=== PATIENT | male | born 1955 | race American Indian/Alaskan Native ===

== ENCOUNTER 2022-11-15 13:52 | Inpatient (IN) | payer OTHER ==
[~2022-11-15] VITALS: Ht 177.8 cm; Wt 115.0 kg
[2022-11-15] VITALS (14 sets, daily range): BP systolic 75–142; BP diastolic 36–99
[~2022-11-15 13:52] MED LIST: ATOR40TA PO; Albuterol Sulfat2 MG PO; CIPR500 PO; DOCU100 PO; HYDR1TAB94 PO; MECL12.5 PO; MELO7.5; PARO20 PO; TADA10TA PO; TAMS.4ER; TERA5
[2022-11-15 14:21] LABS: Hemoglobin 11.9 g/dL (13.5-17.5); Mean Corpuscular HGB 30.7 pg (26.0-34.0); Mean Corpuscular Volume 90 fL (80-100); Mean Platelet Volume 12.2 fL (9.1-12.4); Platelet Count 78 K/mm3 (150-400); RDW Coefficient Variation 13.4 % (11.7-14.2); RDW Standard Deviation 44.3 fL (35.1-46.3); Red Blood Cell Count 3.88 M/mm3 (4.30-5.90); White Blood Cell Count 16.06 K/mm3 (4.00-11.30)
[2022-11-15 14:30] LABS: Albumin, Blood 2.4 g/dL (3.4-5.0); Albumin/Globulin Ratio 0.6 (0.8-1.8); Bun/Creatinine Ratio 12.2 (12.0-20.0); Calcium, Blood 7.5 mg/dL (8.5-10.1); Creatinine, Blood 4.66 mg/dL (0.60-1.20); Globulin, Blood 3.8 g/dL (2.2-4.0); Potassium, Blood 4.1 mmol/L (3.5-5.5); Total Protein, Blood 6.2 g/dL (6.4-8.2)
[2022-11-15 14:37] LABS: Base Excess Venous -2.5 mmol/L; PCO2 Venous 45.1 mmHg (38-42); pH Blood Venous 7.33 (7.34-7.37)
[2022-11-15 14:50] LABS: BAND PERCENT MAN 55 % (0-8); BASOPHILS PERCENT MAN 0 % (0-2); EOSINOPHILS PERCENT MAN 0 % (0-6); LYMPHOCYTES ABSOLUTE MAN 0.16 K/mm3 (0.84-5.20); LYMPHOCYTES PERCENT MAN 1 % (21-46); METAMYELOCYTE ABSOLUTE MAN 0.32 K/mm3 (0.00-0.00); METAMYELOCYTE PERCENT MAN 2 % (0-0); MONOCYTES ABSOLUTE MAN 0.16 K/mm3 (0.16-1.47); MONOCYTES PERCENT MAN 1 % (4-13); MYELOCYTE ABSOLUTE MAN 0.16 K/mm3 (0.00-0.00); MYELOCYTE PERCENT MAN 1 % (0-0); NEUTROPHILS ABSOLUTE MAN 15.25 K/mm3 (1.96-9.15); SEG NEUTROPHILS PERCENT MAN 40 % (41-73); TOTAL CELLS COUNTED 100
[2022-11-15 16:13] LABS: Influenza A, PCR NEGATIVE (NEGATIVE); Influenza B, PCR NEGATIVE (NEGATIVE); Resp Syncytial Virus, PCR NEGATIVE (NEGATIVE); SARS-Cov-2 (COVID-19) PCR, MMC NEGATIVE (NEGATIVE)
[2022-11-15 16:22] LABS: U Amphetamine Screen Not Detected; U Barbituate Screen Not Detected; U Benzodiazapine Screen DETECTED; U Buprenorphine Screen Not Detected; U Cannabinoids Screen Not Detected; U Cocaine Screen Not Detected; U Methadone Screen Not Detected; U Methamphetamine Screen Not Detected; U Opiates Screen Not Detected; U Oxycodone Screen Not Detected; U Phencyclidine Screen Not Detected; U Propoxyphene Screen Not Detected
[2022-11-15 17:52] LABS: Source, Urine Foley catheter
[2022-11-15 18:17] LABS: Appearance, Urine Turbid (Clear); Blood, Urine 5+ (Neg); Color, Urine Amber (P-Yellow); Glucose Qualitative, Urine Neg (Neg); Ketones, Urine 1+ (Neg); Leukocyte Esterase, Urine 3+ (Neg); Nitrite, Urine Neg (Neg); Protein, Urine 4+ (Neg); Urobilinogen, Urine 3+ (Normal)
[2022-11-15 18:42] LABS: Bilirubin, Urine 2+ (Neg)
[2022-11-15 18:45] LABS: Bacteria Many /hpf; Renal Epithelial Few /hpf (0-Rare); Squamous Epithelial Cells Many /hpf (Few); Transitional Epithelial Cells Rare /hpf (0-Rare); White Blood Cells, Urine 50-100 /hpf (0-5)
[2022-11-15 18:47] LABS: Amorphous Light (0-Heavy); Hyaline Casts 0-2 /lpf (0-2)
[2022-11-15 19:12] LABS: International Normalized Ratio 1.78; Prothrombin Time Results 18.1 Sec (9.7-11.5)
[2022-11-15 19:21] LABS: Albumin, Blood 2.1 g/dL (3.4-5.0); Anion Gap 11 mmol/L (6-16); Blood Urea Nitrogen 58 mg/dL (8-24); Bun/Creatinine Ratio 12.6 (12.0-20.0); CO2, Blood 18 mmol/L (21-32); Calcium, Blood 6.9 mg/dL (8.5-10.1); Chloride, Blood 106 mmol/L (98-108); Creatinine, Blood 4.61 mg/dL (0.60-1.20); Glomerular Filtration Rate 13 (60-); Glucose, Blood 135 mg/dL (70-99); Phosphorus, Blood 4.1 mg/dL (2.5-4.9); Potassium, Blood 4.3 mmol/L (3.5-5.5); Sodium, Blood 135 mmol/L (136-145)
--- NOTE | 2022-11-15 19:40 | NUR ---
ASSUMPTION OF CARE: RECEIVED PT FROM JUAN C SIMS FROM ER. PT ARRIVED VIA GURNEY. SLID PT ACROSS TO OUR BED WITH ASSISTANCE. PT ALERT AND ORIENTED TO TIME, PERSON, PLACE AND SITUATION. ON RA WITH SATS >95%. WHEEZING IN UPPER LOBES NOTED AND DIMINISHED IN THE BASES. PT ON LEVOPHED AT 16 MCG/MIN. VASOPRESSIN AT 0.04 UNITS/MIN. NEOSYNEPRHINE AT 60 MCG/MIN. MEDICATIONS INFUSING THROUGH RIGHT IJ CENTRAL LINE. TITRATED TO MAINTAIN MAP >65. PT HAS C/O CHEST PRESSURE, IS DISPHORETIC AND CLAMMY. EKG OBTAINED AND DR. BURGER NOTIFIED WITH RESULTS. GRIFFIN IN PLACE WHICH IS PATENT AND DRAINING TO GRAVITY. VERY SMALL AMOUNTS OF DARK BARBARA COLORED URINE NOTED. ABLE TO USE THE BEDPAN WITH ASSISTANCE. PT'S SIGNIFICANT OTHER AT THE BEDSIDE AND UPDATED TO PLAN OF CARE.
[2022-11-15] MEDS ORDERED: TAMS.4ER PO (20:10)
[2022-11-15] MEDS ORDERED: TEMA30 PO (20:12)
[2022-11-15] MEDS ORDERED: OXYB5 PO (20:12)
[2022-11-15] MEDS ORDERED: DICL75ER PO (20:13)
[2022-11-15] MEDS ORDERED: CELEXA40 M1 PO (20:14)
[2022-11-15 20:30] LABS: PCO2 Arterial 33.1 mmHg (35-45); PO2 Arterial 80.2 mmHg (80-100); pH Blood Arterial 7.32 (7.35-7.45)
[2022-11-15 21:10] LABS: Albumin, Blood 2.1 g/dL (3.4-5.0); Albumin/Globulin Ratio 0.6 (0.8-1.8); Bilirubin, Total 3.6 mg/dL (0.1-1.0); Bun/Creatinine Ratio 13.1 (12.0-20.0); Calcium, Blood 6.9 mg/dL (8.5-10.1); Creatinine, Blood 4.65 mg/dL (0.60-1.20); Globulin, Blood 3.8 g/dL (2.2-4.0); Magnesium, Blood 1.9 mg/dL (1.6-2.4); Total Protein, Blood 5.9 g/dL (6.4-8.2)
--- NOTE | 2022-11-15 23:12 | NUR ---
UPDATE: CALL PLACED TO DR. CHIU REGARDING INCREASING TROPONIN. UPDATED ON PATIENT CONDITION WELL. DR. CHIU AT THE BEDSIDE REGARDING POSSIBLE INTUBATION ON THIS PATIENT. DECISION TO NOT INTUBATE AT THIS TIME. PER DR. CHIU NEOSYNEPHRINE PLACED ON STANDBY AND DECISION TO NOT GIVE THE NS AND SODIUM BICARB AT THIS TIME.
[2022-11-16] VITALS (76 sets, daily range): BP systolic 87–148; BP diastolic 53–89
[2022-11-16 04:13] LABS: Hematocrit 35.8 % (37.0-53.0); Mean Corpuscular HGB 30.7 pg (26.0-34.0); Mean Corpuscular HGB Conc 33.5 g/dL (31.5-36.5); Mean Corpuscular Volume 92 fL (80-100); Mean Platelet Volume 12.9 fL (9.1-12.4); RDW Coefficient Variation 13.9 % (11.7-14.2); RDW Standard Deviation 47.1 fL (35.1-46.3); Red Blood Cell Count 3.91 M/mm3 (4.30-5.90); White Blood Cell Count 20.13 K/mm3 (4.00-11.30)
[2022-11-16 04:16] LABS: Platelet Count 50 K/mm3 (150-400)
[2022-11-16 04:26] LABS: International Normalized Ratio 1.74; Prothrombin Time Results 17.7 Sec (9.7-11.5)
[2022-11-16 04:32] LABS: Magnesium, Blood 2.2 mg/dL (1.6-2.4)
[2022-11-16 04:33] LABS: Albumin, Blood 2.2 g/dL (3.4-5.0); Albumin/Globulin Ratio 0.6 (0.8-1.8); Bilirubin, Total 3.8 mg/dL (0.1-1.0); Bun/Creatinine Ratio 14.2 (12.0-20.0); Calcium, Blood 7.1 mg/dL (8.5-10.1); Creatinine, Blood 4.73 mg/dL (0.60-1.20); Phosphorus, Blood 4.9 mg/dL (2.5-4.9); Potassium, Blood 4.7 mmol/L (3.5-5.5); Total Protein, Blood 6.2 g/dL (6.4-8.2)
[2022-11-16 05:37] LABS: BAND PERCENT MAN 13 % (0-8); BASOPHILS PERCENT MAN 0 % (0-2); EOSINOPHILS PERCENT MAN 0 % (0-6); LYMPHOCYTES PERCENT MAN 2 % (21-46); METAMYELOCYTE PERCENT MAN 3 % (0-0); MONOCYTES PERCENT MAN 2 % (4-13); NEUTROPHILS ABSOLUTE MAN 18.72 K/mm3 (1.96-9.15); SEG NEUTROPHILS PERCENT MAN 80 % (41-73); TOTAL CELLS COUNTED 100
--- NOTE | 2022-11-16 06:08 | NUR ---
SHIFT SUMMARY: PT REMAINS ALERT AND ORIENTED TO TIME, PERSON, PLACE AND SITUATION. LUNG SOUNDS STILL WHEEZY IN UPPER LOBES AND DIM IN THE BASES. REMAINS ON RA WITH SATS >95%. DENIES SOB. PT STILL A LITTLE DIAPHORETIC AND CLAMMY. LEVO, CHAPINCITO AND VASO REMAIN ON SB AT THIS TIME SINCE 231. AMIO INFUSING AT 0.5 MG/HR. MAP >65. HR 70'S IN SINUS RHYTHM. DENIES CHEST PAIN/PRESSURE AT THIS TIME. CENTRAL LINE TO RIGHT IJ INFUSING AMIO, PATENT DRAWS BLOOD AND FLUSHES WELL, NEW DRESSING THIS SHIFT. PIV'S ALL REMAIN INTACT. RIGHT HAND 20 GAUGE INFUSING CALCIUM. RIGHT AC SALINE LOCKED, LEFT AC SALINE LOCKED. GRIFFIN IN PLACE, PATENT AND DRAINING DARK, BARBARA URINE TO GRAVITY. SMALL BM THIS SHIFT. PT C/O FEELING NAUSEOUS, HAVING HEARTBURN. MEDICATED PER APR WITH SOME MILD RELIEF. PLANS TO TAKE PT TO OR TODAY FOR POSSIBLE NEPHROSTOMY TUBE PLACEMENT. PT NPO SINCE MIDNIGHT. IR CONSULT CALLED PER LUIZ. ABLE TO REPOSITION IN THE BED WITH ASSISTANCE. CALL LIGHT IN REACH.
--- NOTE | 2022-11-16 07:00 | NUR ---
ASSUMPTION OF CARE: ASSUMED CARE OF PATIENT WITH ARI PELLETIER. PATIENT RESTING IN BED. PATIENT REPORTS FEELING GENERALLY UNWELL. PATIENT DENIES PAIN. PATIENT REPORTS HEARTBURN. PATIENT EXPERIENCING THIN, DARK BROWN EMESIS. DR. CARLSON AND DR. CHIU AWARE. PATIENT ANSWERING QUESTIONS APPROPRIATELY. MINIMAL OUTPUT IN THE GRIFFIN CATHETER. CATHETER IS DRAINING FREELY. PATIENT SPO2 95-97% ON ROOM AIR. RR 16-20. PATIENT DENIES SHORTNESS OF BREATH OR DIFFICULTY BREATHING. LEVO, VASOPRESSIN, AND CHAPINCITO CONTINUE TO BE ON STANDBY. PATIENT RECEIVING AMIO AT 0.5MG/MIN. PATIENT IS NORMAL SINUS RHYTHM. MAPS >65.
[2022-11-16 08:46] LABS: Hematocrit 36.1 % (37.0-53.0); Hemoglobin 12.3 g/dL (13.5-17.5); Mean Corpuscular HGB 30.7 pg (26.0-34.0); Mean Corpuscular HGB Conc 34.1 g/dL (31.5-36.5); Mean Corpuscular Volume 90 fL (80-100); RDW Coefficient Variation 13.7 % (11.7-14.2); RDW Standard Deviation 45.9 fL (35.1-46.3); Red Blood Cell Count 4.01 M/mm3 (4.30-5.90); White Blood Cell Count 23.61 K/mm3 (4.00-11.30)
[2022-11-16 08:49] LABS: Platelet Count 46 K/mm3 (150-400)
[2022-11-16 09:09] LABS: International Normalized Ratio 1.68; Prothrombin Time Results 17.1 Sec (9.7-11.5)
[2022-11-16 09:12] LABS: BAND PERCENT MAN 10 % (0-8); BASOPHILS PERCENT MAN 0 % (0-2); EOSINOPHILS PERCENT MAN 0 % (0-6); LYMPHOCYTES PERCENT MAN 3 % (21-46); METAMYELOCYTE ABSOLUTE MAN 0.47 K/mm3 (0.00-0.00); METAMYELOCYTE PERCENT MAN 2 % (0-0); MONOCYTES ABSOLUTE MAN 1.88 K/mm3 (0.16-1.47); MONOCYTES PERCENT MAN 8 % (4-13); NEUTROPHILS ABSOLUTE MAN 20.54 K/mm3 (1.96-9.15); SEG NEUTROPHILS PERCENT MAN 77 % (41-73); TOTAL CELLS COUNTED 100
[2022-11-16 15:55] LABS: Hematocrit 33.3 % (37.0-53.0); Hemoglobin 11.5 g/dL (13.5-17.5); Mean Corpuscular HGB 30.9 pg (26.0-34.0); Mean Corpuscular HGB Conc 34.5 g/dL (31.5-36.5); Mean Corpuscular Volume 90 fL (80-100); Mean Platelet Volume 12.4 fL (9.1-12.4); Platelet Count 60 K/mm3 (150-400); RDW Standard Deviation 46.5 fL (35.1-46.3); Red Blood Cell Count 3.72 M/mm3 (4.30-5.90); White Blood Cell Count 20.64 K/mm3 (4.00-11.30)
[2022-11-16 16:19] LABS: Vancomycin, Random 14.9 ug/mL
[2022-11-16 16:33] LABS: BAND PERCENT MAN 39 % (0-8); BASOPHILS PERCENT MAN 0 % (0-2); EOSINOPHILS PERCENT MAN 0 % (0-6); LYMPHOCYTES ABSOLUTE MAN 1.03 K/mm3 (0.84-5.20); LYMPHOCYTES PERCENT MAN 5 % (21-46); METAMYELOCYTE PERCENT MAN 1 % (0-0); MONOCYTES ABSOLUTE MAN 0.41 K/mm3 (0.16-1.47); MONOCYTES PERCENT MAN 2 % (4-13); NEUTROPHILS ABSOLUTE MAN 18.98 K/mm3 (1.96-9.15); SEG NEUTROPHILS PERCENT MAN 53 % (41-73); TOTAL CELLS COUNTED 100
--- NOTE | 2022-11-16 18:55 | NUR ---
END OF SHIFT SUMMARY: NEURO: PATIENT ALERT AND ORIENTED X 4 THROUGHOUT THE SHIFT. PATIENT DISPLAYED MINIMAL FORGETFULLNESS AT TIMES. PATIENT ANSWERING QUESTIONS APPROPRIATELY AND FOLLOWING DIRECTIONS. PATIENT DENIES NUMBNESS/TINGLING THROUGHOUT. EQUAL STRENGTH ACROSS EXTREMITIES. PATIENT ABLE TO GET SHORT NAPS TODAY. PATIENT REPORTS NOT BEING ABLE TO SLEEP WELL RECENTLY. CARDIAC: PATIENT CONTINUED TO HAVE MAPS >65 WITHOUT REQUIRING HEMODYNAMIC SUPPORT. SBPS IN THE 90S TO LOW 100S. PATIENT DENIED CHEST PAIN OR DISCOMFORT. PATIENT MAINTAINED A SINUS RHYTHM. HR IN THE 60S-70S. RESPIRATORY: PATIENT DENIED SHORTNESS OF BREATH OR DIFFICULTY BREATHING THROUGHOUT THE SHIFT. SPO2S 96-97% ON RA. BREATHS EVEN AND REGULAR. GI/: PATIENT HAD DISTENTION, ABD FIRMNESS AND ABD TENDERNESS WITH PALPATION THROUGHOUT THE SHIFT. NO APPARENT CHANGES TO SIZE, FIRMNESS OR TENDERNESS. DURING THE FIRST HALF OF THE SHIFT, PATIENT NAUSEATED AND VOMITING THING, DARK BROWN EMESIS. BY MID SHIFT AND POST ZOFRAN ADMINISTRATION. PATIENT REPORTED IMPROVEMENT FOR THE REST OF THE SHIFT. NO FURTHER EMESIS. PATIENT REPORTS NOT HAVING A BOWEL MOVEMENT FOR 5-6 DAYS. PATIENT HAD A SMEAR TODAY THAT WAS LIGHT BROWN IN COLOR. GRIFFIN IN PLACE, DRAINING FREELY. MINIMAL URINE OUTPUT. URINE IS DARK YELLOW/BARBARA. MUSCULOSKELETAL: PATIENT ABLE TO MOVE LIMBS FREELY AND INDEPENDENTLY. ABLE TO ASSIST WITH REPOSITIONING. PSYCHSOCIAL: PATIENT HAS MAINTAINED HIS HUMOR AND PATIENT ATTTITUDE THROUGHOUT THE SHIFT. PATIENT'S SIGNIFICANT OTHER IS SUPPORTIVE OF THE PATIENT. THEY SEEM TO HAVE GOOD COMMUNICATION WITH EACH OTHER.
--- NOTE | 2022-11-16 19:15 | NUR ---
ASSUMPTION OF CARE: RECIEVED REPORT FROM ARI RN AND TAYO RN. PT ALERT AND ORIENTED X 3-4. ABLE TO ANSWER QUESTIONS AND MAKE NEEDS KNOWN. ON RA AT THIS TIME SATS >94%. DENIES SOB. LUNG SOUNDS A LITTLE COARSE AND WHEEZY IN UPPER LOBES AND DIM IN BASES. IN SINUS RHYTHM HR 60'S. SBP 100'S WITH MAP >65. DENIES ANY CHEST PAIN OR PRESSURE. PT REMAINS A LITTLE CLAMMY AND MILDLY DIAPHORETIC. RIGHT IJ CENTRAL LINE IN PLACE, INFUSING TKO AND ANTIBIOTICS. PIV'S IN RIGHT AC AND RIGHT HAND PATENT AND SALINE LOCKED. PT C/O NAUSEA, MEDICATED PER MAR WITH RELIEF. NO VOMITING AT THIS TIME. GRIFFIN IN PLACE FOR CRITICAL I&O, PATENT AND DRAINING TO GRAVITY, SMALL AMOUNTS OF BARBARA COLORED URINE. NO BM YET. CALL LIGHT IN REACH.
[2022-11-16 19:53] LABS: Hematocrit 33.4 % (37.0-53.0); Hemoglobin 11.4 g/dL (13.5-17.5); Mean Corpuscular HGB 30.6 pg (26.0-34.0); Mean Corpuscular HGB Conc 34.1 g/dL (31.5-36.5); Mean Corpuscular Volume 90 fL (80-100); Mean Platelet Volume 12.7 fL (9.1-12.4); Platelet Count 61 K/mm3 (150-400); RDW Coefficient Variation 13.8 % (11.7-14.2); RDW Standard Deviation 45.9 fL (35.1-46.3); Red Blood Cell Count 3.72 M/mm3 (4.30-5.90); White Blood Cell Count 20.59 K/mm3 (4.00-11.30)
[2022-11-16 20:34] LABS: BAND PERCENT MAN 3 % (0-8); BASOPHILS PERCENT MAN 0 % (0-2); EOSINOPHILS PERCENT MAN 0 % (0-6); LYMPHOCYTES ABSOLUTE MAN 0.61 K/mm3 (0.84-5.20); LYMPHOCYTES PERCENT MAN 3 % (21-46); MONOCYTES ABSOLUTE MAN 0.82 K/mm3 (0.16-1.47); MONOCYTES PERCENT MAN 4 % (4-13); MYELOCYTE ABSOLUTE MAN 0.61 K/mm3 (0.00-0.00); MYELOCYTE PERCENT MAN 3 % (0-0); NEUTROPHILS ABSOLUTE MAN 18.53 K/mm3 (1.96-9.15); SEG NEUTROPHILS PERCENT MAN 87 % (41-73); TOTAL CELLS COUNTED 100
[2022-11-16 23:53] LABS: Hemoglobin 11.3 g/dL (13.5-17.5); Mean Corpuscular HGB 30.8 pg (26.0-34.0); Mean Corpuscular HGB Conc 34.2 g/dL (31.5-36.5); Mean Corpuscular Volume 90 fL (80-100); Mean Platelet Volume 12.9 fL (9.1-12.4); Platelet Count 61 K/mm3 (150-400); RDW Coefficient Variation 13.9 % (11.7-14.2); RDW Standard Deviation 46.1 fL (35.1-46.3); Red Blood Cell Count 3.67 M/mm3 (4.30-5.90); White Blood Cell Count 19.89 K/mm3 (4.00-11.30)
[2022-11-17] VITALS (75 sets, daily range): BP systolic 79–123; BP diastolic 50–80
[2022-11-17 00:21] LABS: BASOPHILS PERCENT MAN 0 % (0-2); EOSINOPHILS PERCENT MAN 0 % (0-6); LYMPHOCYTES ABSOLUTE MAN 0.39 K/mm3 (0.84-5.20); LYMPHOCYTES PERCENT MAN 2 % (21-46); MONOCYTES ABSOLUTE MAN 0.19 K/mm3 (0.16-1.47); MONOCYTES PERCENT MAN 1 % (4-13); NEUTROPHILS ABSOLUTE MAN 19.29 K/mm3 (1.96-9.15); SEG NEUTROPHILS PERCENT MAN 97 % (41-73); TOTAL CELLS COUNTED 100
[2022-11-17 05:14] LABS: Hematocrit 32.2 % (37.0-53.0); Hemoglobin 10.9 g/dL (13.5-17.5); Mean Corpuscular HGB 30.6 pg (26.0-34.0); Mean Corpuscular HGB Conc 33.9 g/dL (31.5-36.5); Mean Corpuscular Volume 90 fL (80-100); Platelet Count 56 K/mm3 (150-400); RDW Coefficient Variation 13.8 % (11.7-14.2); RDW Standard Deviation 46.6 fL (35.1-46.3); Red Blood Cell Count 3.56 M/mm3 (4.30-5.90); White Blood Cell Count 18.46 K/mm3 (4.00-11.30)
[2022-11-17 05:16] LABS: Mean Platelet Volume 13.9 fL (9.1-12.4)
[2022-11-17 05:32] LABS: Magnesium, Blood 2.7 mg/dL (1.6-2.4)
[2022-11-17 05:33] LABS: Anion Gap 10 mmol/L (6-16); Blood Urea Nitrogen 84 mg/dL (8-24); CO2, Blood 22 mmol/L (21-32); Calcium, Blood 7.5 mg/dL (8.5-10.1); Chloride, Blood 106 mmol/L (98-108); Creatinine, Blood 4.43 mg/dL (0.60-1.20); Glomerular Filtration Rate 14 (60-); Glucose, Blood 128 mg/dL (70-99); Phosphorus, Blood 6.4 mg/dL (2.5-4.9); Potassium, Blood 4.5 mmol/L (3.5-5.5); Sodium, Blood 138 mmol/L (136-145); Vancomycin, Random 24.9 ug/mL
[2022-11-17 05:40] LABS: BAND PERCENT MAN 8 % (0-8); BASOPHILS PERCENT MAN 0 % (0-2); EOSINOPHILS PERCENT MAN 0 % (0-6); LYMPHOCYTES ABSOLUTE MAN 0.18 K/mm3 (0.84-5.20); LYMPHOCYTES PERCENT MAN 1 % (21-46); MONOCYTES ABSOLUTE MAN 0.36 K/mm3 (0.16-1.47); MONOCYTES PERCENT MAN 2 % (4-13); SEG NEUTROPHILS PERCENT MAN 89 % (41-73); TOTAL CELLS COUNTED 100
--- NOTE | 2022-11-17 06:32 | NUR ---
SHIFT SUMMARY: PT REMAINS ALERT AND ORIENTED X3-4 T/O THE SHIFT. ABLE TO SLEEP AFTER ONE TIME DOSE OF SLEEPING MEDICATION. PT STATES HE NO LONGER FEELS NAUSEOUS. DENIES SOB. REMAINS ON RA T/O THE SHIFT WITH SPO2 >95%. LUNG SOUNDS CLEAR AND DIM WITH PERIODS OF WHEEZING. CARDIAC MONITORING IN PLACE, SINUS RHYTHM WITH HR 60'S. MAP >65. DENIES CHEST PAIN OR PRESSURE. REMAINS NPO FOR POSSIBLE SCOPE, WITH EXCEPTION OF A SIP OF WATER FOR PO MEDS. GRIFFIN IN PLACE, PATENT AND DRAINING YELLOW URINE TO GRAVITY. MEDIUM BROWN BOWEL MOVEMENT ON THE BEDPAN. RIGHT IJ CENTRAL LINE, INFUSING TKO WITH ANTIBIOTIC. PIV'S REMAIN PATENT AND SALINE LOCKED. ABLE TO REPOSITION IN THE BED WITH MINIMAL ASSIST. ABLE TO MAKE NEEDS KNOWN T/O THE SHIFT. CALL LIGHT WITHIN REACH.
--- NOTE | 2022-11-17 07:00 | NUR ---
ASSUMPTION OF CARE: ASSUMED CARE OF PATIENT WITH ARI PELLETIER. PATIENT RESTING QUIETLY IN BED. AWAKENS EASILY TO VERBAL STIMULI. PATIENT DENIES PAIN OR NAUSEA AT THIS TIME. PATIENT APPEARS COMFORTABLE. BREATHS ARE EVEN AND REGULAR. SPO2 97% ON RA. RR 12-16. HR IN THE HIGH 50S TO 60S. MAPS >65. BLOOD PRESSURES ARE SOFT (SBP HIGH 80S TO HIGH 90S). PATIENT DENIES DIZZINESS, SHORTNESS OF BREATH OR DIZZINESS. PATIENT IS SALINE LOCKED. GRIFFIN IS IN PLACE AND DRAINING FREELY. URINE IS DARK YELLOW TO BARBARA. ABDOMINAL DISTENTION PRESENT. ABDOMEN SOFTER, PATIENT DENIES TENDERNESS ON PALPATION AND BOWEL SOUNDS ACTIVE.
[2022-11-17 12:14] LABS: Albumin/Globulin Ratio 0.5 (0.8-1.8); Bilirubin, Direct 2.5 mg/dL (0.0-0.3); Bilirubin, Indirect 0.4 mg/dL (0.1-0.7); Bilirubin, Total 2.9 mg/dL (0.1-1.0); Globulin, Blood 4.1 g/dL (2.2-4.0); Total Protein, Blood 6.1 g/dL (6.4-8.2)
[2022-11-17 14:31] LABS: Hematocrit 31.9 % (37.0-53.0); Hemoglobin 11.1 g/dL (13.5-17.5)
--- NOTE | 2022-11-17 16:26 | NUR ---
11/17/22 1626 Payal Theodore History, Chart, Medications and Allergies reviewed before start of procedure. 3-LEAD EKG REVIEWED WITH PHYSICIAN PRIOR TO START OF PROCEDURE. MONITOR INTACT WITH CONTINUOUS PULSE OXIMETRY, CONTINUOUS END TITAL CO2, AND INTERMITTENT BLOOD PRESSURE. O2 VIA N/C INTACT THROUGHOUT SEDATION/PROCEDURE. See Anesthesia record DR FRANK FOR DETAILS.
--- NOTE | 2022-11-17 19:17 | NUR ---
SHIFT SUMMARY: NEURO: PATIENT ALERT AND ORIENTED X4 THROUGHOUT THE DAY. SOME STML AND WORD FINDING NOTED. PATIENT ABLE TO RECOGNIZE THIS WELL. PATIENT DENIED PAIN OR DISCOMFORT THROUGHOUT THE DAY. DENIED NUMBNESS/TINGLING. FOLLOWING COMMANDS. EQUAL STRENGTH ACROSS EXTREMITIES. PATIENT REPORTED THAT THE TREMORS IN HIS HANDS (WITH FINE MOTOR MOVEMENT) IS NEW. CARDIAC: PATIENT DENIED CHEST PAIN OR DISCOMFORT. SBPS IN THE 90S - LOW 100S. MAPS >65. HR IN THE MID 50'S- 60S. PATIENT DENIES LIGHTHEADEDNESS OR DIZZINESS. RESPIRATORY: PATIENT SPO2 96-97% ON RA. BREATHS ARE EVEN AND REGULAR. PATIENT DENIES SHORTNESS OF BREATH OR DIFFICULTY BREATHING. BREATH SOUNDS DIMINISHED THROUGHOUT WITH OCCASIONAL EXPIRATORY WHEEZES. GI/. PATIENT DENIED NAUSEA OR GASTRIC DISCOMFORT THROUGHOUT THE SHIFT. ABDOMEN DISTENDED. INCREASINGLY SOFT. PATIENT DENIED TENDERNESS WITH PALPATION. ACTIVE BOWEL SOUNDS. PATIENT HAD THE ENDOSCOPE COMPLETED EARLY THIS EVENING. PATIENT TOLERATED THE PROCEDURE WELL. VITALS REMAINED STABLE. PATIENT ABLE TO SAFELY SWALLOW POST PROCEDURE. INCREASED URINE OUTPUT. CONTINUES TO BE DARK YELLOW- BARBARA IN COLOR. MINIMAL SEDIMENT NOTED. MUSCULOSKELETAL: PATIENT ABLE TO ASSIST WITH REPOSITONING AND BOOSTING IN BED. ABLE TO PARTICIPATE IN CARE. PSYCHSOCIAL: PATIENT CONTINUES TO REPORT FEELING BETTER. PATIENT IS CALM AND COOPERATIVE. PATIENT'S SO IN TO VISIT THE PATIENT TODAY. THEY ARE RECEPTIVE TO EDUCATION AND INFORMATION ON THE PATIENT'S HEALTH.
--- NOTE | 2022-11-17 21:44 | NUR ---
ASSUMED CARE PT A&O X4; [place], PLEASANT AND COOPERATIVE. PT DENIES PAIN. HELPED PT UP TO BEDSIDE COMMODE W/ MINIMAL ASSISTANCE. SMALL BM W/ NO BLOOD VISIBLY NOTED. PT RESTING QUIETLY AT THIS TIME.
--- NOTE | 2022-11-17 22:51 | NUR ---
UPDATE PT STILL ORIENTED X3-4, BUT APPEARS TO HAVE SOME INTERMITTENT CONFUSION. WAS ATTEMPTING TO GET OUT OF BED TO URINATE, EXPLAINED PT HAD A CATHETER IN AND PT STATED "I KNOW" THEN SAID HE NEEDS TO GET OUT OF BED TO URINATE AGAIN. CATHETER PULLED PER ORDERS AND PT NOW RESTING QUIETLY W/ OCCASIONAL MUTTERING; PT STATES HE'S TALKING TO HIMSELF ABOUT THINGS HE NEEDS TO GET DONE PER FITTING SUPERVISOR.
[2022-11-18] VITALS (14 sets, daily range): BP systolic 93–137; BP diastolic 49–91
[2022-11-18 03:57] LABS: BASOPHILS ABSOLUTE AUTO 0.02 K/mm3 (0.00-0.23); BASOPHILS PERCENT AUTO 0 % (0-2); EOSINOPHILS ABSOLUTE AUTO 0.01 K/mm3 (0.00-0.68); EOSINOPHILS PERCENT AUTO 0 % (0-6); Hematocrit 33.4 % (37.0-53.0); Hemoglobin 11.4 g/dL (13.5-17.5); IMMATURE GRAN ABSOLUTE AUTO 0.11 K/mm3 (0.00-0.10); IMMATURE GRAN PERCENT AUTO 1 % (0-1); LYMPHOCYTES ABSOLUTE AUTO 0.54 K/mm3 (0.84-5.20); LYMPHOCYTES PERCENT AUTO 4 % (21-46); MONOCYTES ABSOLUTE AUTO 0.62 K/mm3 (0.16-1.47); MONOCYTES PERCENT AUTO 4 % (4-13); Mean Corpuscular HGB 30.6 pg (26.0-34.0); Mean Corpuscular HGB Conc 34.1 g/dL (31.5-36.5); Mean Corpuscular Volume 90 fL (80-100); NEUTROPHILS ABSOLUTE AUTO 12.64 K/mm3 (1.96-9.15); NEUTROPHILS PERCENT AUTO 91 % (41-73); Platelet Count 65 K/mm3 (150-400); RDW Coefficient Variation 13.8 % (11.7-14.2); RDW Standard Deviation 45.4 fL (35.1-46.3); Red Blood Cell Count 3.73 M/mm3 (4.30-5.90); White Blood Cell Count 13.94 K/mm3 (4.00-11.30)
[2022-11-18 04:10] LABS: Albumin, Blood 1.9 g/dL (3.4-5.0); Anion Gap 10 mmol/L (6-16); Blood Urea Nitrogen 97 mg/dL (8-24); CO2, Blood 21 mmol/L (21-32); Calcium, Blood 7.5 mg/dL (8.5-10.1); Chloride, Blood 107 mmol/L (98-108); Creatinine, Blood 4.22 mg/dL (0.60-1.20); Glomerular Filtration Rate 14 (60-); Glucose, Blood 111 mg/dL (70-99); Magnesium, Blood 2.7 mg/dL (1.6-2.4); Phosphorus, Blood 4.9 mg/dL (2.5-4.9); Potassium, Blood 3.9 mmol/L (3.5-5.5); Sodium, Blood 138 mmol/L (136-145)
[2022-11-18 04:25] LABS: Mean Platelet Volume 13.8 fL (9.1-12.4)
--- NOTE | 2022-11-18 05:42 | NUR ---
SHIFT SUMMARY PT RESTLESS T/O NIGHT W/ LITTLE TO NO SLEEP. STILL ALERT AND ORIENTED X3-4. IMPULSIVE AND FREQUENTLY ATTEMPTED TO GET OUT OF BED W/ FREQUENT EDUCATION ON IMPORTANCE OF USING CALL LIGHT WHEN NEEDING TO GET OUT OF BED, BUT WILL NOT USE. FOLLOWS COMMANDS WHILE IN ROOM. GRIFFIN CATHETER DC'D. CENTRAL LINE DC'D BY EDY CROOKS W/ THIS RN AND RUFINO SHAVER AT BEDSIDE. NO OTHER ACUTE EVENTS BESIDES RESTLESSNESS. PT REMAINS COOPERATIVE WHILE IN ROOM.
--- NOTE | 2022-11-18 07:00 | NUR ---
ASSUMPTION OF CARE: ASSUMED CARE OF PATIENT WITH ARI PELLETIER. PATIENT OUT OF BED TO RECLINER. PATIENT REQUIRES ASSISTANCE GETTING OUT OF BED AND WITH STABILITY. PATIENT FOLLOWING DIRECTIONS. PATIENT ALERT AND ORIENTED X4. PATIENT DENIES NAUSEA, SHORTNESS OF BREATH, OR CHEST DISCOMFORT. ABDOMEN CONTINUES TO BE DISTENDED WITH SOME FIRMNESS. PATIENT DENIES TENDERNESS. SPO2 96-96% ON RA. HR IN THE 60S-70S. SBP IN THE HIGH 90S TO 110S.
--- NOTE | 2022-11-18 18:20 | NUR ---
TRANSFER AND SHIFT SUMMARY: PATIENT TRANSFERRED TO MEDICAL FLOOR. REPORT GIVEN TO ELIAEN SCHNEIDER. PATIENT STABLE AT TIME OF TRANSFER. NOTIFIED PATIENTS SO SHAMAR. NEURO: PATIENT REMAINED ALERT AND ORIENTED 3-4 DURING THE SHIFT. PATIENT IMPULSIVE AND DID NOT USE THE CALL LIGHT TO GET ASSISTANCE WITH OOB ACTIVITY. PATIENT OTHERWISE CALM AND COOPERATIVE. DENIES NUMBNESS/TINGLING. OOB WITH ONE ASSIST AND FWW. PATIENT STEADY ON FEET WITH WALKER. PATIENT REPORTING A TIGHT MUSCLE IN RIGHT NECK - DISCUSSED WITH DR. CARLSON. MEDICATED PER PRNS. ASSISTED WITH ICE, MASSAGE AND REPOSITIONING. CARDIAC: PATIENT DENIED CHEST DISCOMFORT OR HEARTBURN. HR IN THE 60S-70S. SBPS HIGH 90S TO 110S. RESPIRATORY: PATIENT STABLE ON ROOM AIR. RR 16-20. SPO2 94-96% ON RA. EXPIRATORY WHEEZES AT TIMES. PRN BREATHING TREATMENTS ORDERED. GI/: PATIENT TOLERATING PO INTAKE WITHOUT NAUSEA OR ABDOMINAL DISCOMFORT. NO SIGNS OR SYMPTOMS OF GI BLEED. VOIDING POST GRIFFIN REMOVAL. PATIENT REPORTS SOME RETENTION AT BASELINE. VOIDED MULTIPLE TIMES THROUGHOUT THE SHIFT. PSYCHSOCIAL: PATIENT COOPERATIVE WITH CARE. PATIENT REPORTS THAT HE LIVES ALONE AT THE MOMENT. PATIENTS SO SHAMAR VISITED TODAY. SHE IS SUPPORTIVE AND INVOLVED IN HIS CARE.
--- NOTE | 2022-11-18 18:31 | NUR ---
NOTE: PATIENT ARRIVES TO ROOM AT AROUND 1750 FROM ICU RM 4 VIA WHEELCHAIR. ASSUME CARE OF PATIENT. PATIENT IS A/OX4. 1 ASSIST TO GET UP c FWW AND GAITBELT. PATIENT IS IMPULSIVE AND DOES NOT USES CALL LIGHT. PATIENT ON [facility] SOFT DIET, EATING AND DRINKING WELL WITHOUT ANY SIGNS OF DIFFICULTY SWALLOWING. VITAL SIGNS REVIEWED. PIV TO LAC AND R HAND SALINE LOCKED. BED ALARM ON FOR SAFETY. CALL LIGHT IN REACH.
[2022-11-19 02:15] VITALS: BP 127/75
--- NOTE | 2022-11-19 05:09 | NUR ---
SHIFT SUMMARY PINKY WAS ALERT AND ORIENTED X 3-4 AT THE START OF SHIFT. HE WAS BEING COOPERATIVE AT FIRST. HE REFUSES TO USE HIS CALL LIGHT TO GO TO THE BATHROOM, AND WAS ATTEMPTING TO GET OUT OF BED ON HIS OWN ALL THROUGHOUT THE NIGHT. HE IS NOT REDIRECTABLE AT ALL. TOWARDS 0400 PT BEGAN TO BECOME RESTLESS AND CONFUSED. HE WAS PLACED ON VIDEO MONITOR. HE ACCIDENTALLY PULLED THE IV IN HIS RIGHT HAND AROUND THIS TIME. NO OTHER ACUTE EVENTS TONIGHT. PT IS CURRENTLY IN BED AT A LOW POSITION AND ON VIDEO MONITOR.
[2022-11-19 07:10] LABS: Hematocrit 34.4 % (37.0-53.0); Hemoglobin 11.8 g/dL (13.5-17.5)
[2022-11-19 07:32] LABS: Magnesium, Blood 2.6 mg/dL (1.6-2.4)
[2022-11-19 07:33] LABS: Albumin, Blood 1.9 g/dL (3.4-5.0); Anion Gap 9 mmol/L (6-16); Blood Urea Nitrogen 96 mg/dL (8-24); Bun/Creatinine Ratio 25.9 (12.0-20.0); CO2, Blood 21 mmol/L (21-32); Calcium, Blood 7.7 mg/dL (8.5-10.1); Chloride, Blood 108 mmol/L (98-108); Glomerular Filtration Rate 17 (60-); Glucose, Blood 118 mg/dL (70-99); Potassium, Blood 4.4 mmol/L (3.5-5.5); Sodium, Blood 138 mmol/L (136-145)
[2022-11-19 07:39] VITALS: BP 131/74
[2022-11-19 15:29] VITALS: BP 115/79
--- NOTE | 2022-11-19 18:36 | NUR ---
SHIFT SUMMARY: PATIENT IS A&OX3. PLEASANT AND COOPERATIVE c CARE. IMPULSIVE, DOES NOT USES CALL LIGHT AND KEEPS SITTING THE BED ALARM OFF THIS SHIFT. EASILY REDIRECTABLE. PATIENT REPORTS HEADACHE 07/23, MEDICATED c PO TYLENOL c GOOD EFFECT. PATIENT IS CONTINENCE OF BLADDER AND AMBULATES TO BATHROOM c SBA. PATIENT WORKS c PT MOBILITY TODAY. PT RECOMMENDED HH SERVICES. PATIENT DENIES CP/PRESSURE, N/V, SOB AND DIZZINESS. VITAL SIGNS REVIEWED. PATIENT IS EATING AND DRINKING WELL. RECEIVED SCHEDULED IV ABX AND PO MEDS PER EMAR. PIV TO R FOREARM SALINE LOCKED. BED ALARM ON FOR SAFETY. CALL LIGHT IN REACH.
[2022-11-19 19:54] VITALS: BP 134/77
--- NOTE | 2022-11-20 04:31 | NUR ---
SHIFT SUMMARY PINKY WAS ALERT AND ORIENTED X3 AT START OF SHIFT. HE WAS COOPERATIVE WITH CARE WITH THE EXCEPTION OF CALLING FOR HELP WHICH HE WILL NOT DO. HE WAS STARTED ON IV LASIX, AND WAS UP TO VOID AT LEAST 10 TIMES. HIS CONFUSION DID NOT INCREASE TONIGHT LIKE IT DID THE PREVIOUS NIGHT. PT HAS NO OUTSTANDING COMPLAINTS, AND NO ACUTE EVENTS TONIGHT. PT IS CURRENTLY IN BED AT A LOW POSITION, WITH THE BED ALARM ON AND CAMERA MONITORING.
[2022-11-20 04:39] VITALS: BP 151/82
[2022-11-20 05:31] LABS: Hematocrit 38.1 % (37.0-53.0); Hemoglobin 12.9 g/dL (13.5-17.5)
[2022-11-20 06:00] LABS: Albumin, Blood 2.1 g/dL (3.4-5.0); Anion Gap 7 mmol/L (6-16); Blood Urea Nitrogen 88 mg/dL (8-24); Bun/Creatinine Ratio 24.7 (12.0-20.0); CO2, Blood 24 mmol/L (21-32); Calcium, Blood 8.2 mg/dL (8.5-10.1); Chloride, Blood 104 mmol/L (98-108); Creatinine, Blood 3.56 mg/dL (0.60-1.20); Glomerular Filtration Rate 18 (60-); Glucose, Blood 109 mg/dL (70-99); Magnesium, Blood 2.4 mg/dL (1.6-2.4); Phosphorus, Blood 4.5 mg/dL (2.5-4.9); Potassium, Blood 4.2 mmol/L (3.5-5.5); Sodium, Blood 135 mmol/L (136-145)
[2022-11-20 07:13] VITALS: BP 113/71
[2022-11-20 15:11] VITALS: BP 125/68
--- NOTE | 2022-11-20 15:35 | NUR ---
SHIFT SUMMARY: PATIENT IS A/OX3, COULD NOT RECALL THE DATES AND [facility]. PATIENT IS PLEASANT, COOPERATIVE c CARE, IMPULSIVE AT TIMES AND DOES NOT USES CALL LIGHT. PATIENT IS CONTINENCE OF BOWELS AND BLADDER, AMBULATES TO BATHROOM c SBA. PATIENT REPORTS PAIN 5/10 TO NECK, MEDICATED X1 c PO TYLENOL c GOOD EFFECT. PATIENT RECEIVED IV ABX AND PO MEDS PER EMAR. PATIENT REPORTS "NO APPETITE", ATE COUPLE BITES FOR BREAKFAST AND 100% FOR LUNCH. VITAL SIGNS REVIEWED. PIV TO R FOREARM SALINE LOCKED. PATIENT ON VIDEO MONITORING. BED ALARM ON FOR SAFETY. CALL LIGHT IN REACH.
[2022-11-20 19:41] VITALS: BP 151/78
[2022-11-21 00:47] VITALS: BP 128/75
[2022-11-21 02:26] VITALS: BP 143/76
--- NOTE | 2022-11-21 06:25 | NUR ---
SUMMARY: PT IS MANZ[place]ITA AND A/OX3 BUT IS IMPULSIVE, FORGETFULL AND DOESN'T USE CALL LIGHT FOR ASSIST DESPITE REMINDERS. BED ALARM IS ON W/CAMERA MONITIORING IN PROGRESS FOR FALL RISK AND PT SAFETY. HE HAS URINARY URGENCY SO WAS ASSISTED FREQUENTLY W/URINAL OR TOILET FOR SMALL VOIDS. SBA W/FWW REQUIRED D/T UNSTEADY GAIT AND LACKING AWARENESS OF LIMITATIONS. ABDO IS DISTENDED, OBESE AND FIRM BUT PT DENIES DISCOMFORT. BLADDER SCAN WAS NEGLIGABLE AND NO S/S BLEEDING OBSERVED. VSS/AFEBRILE, NO ACUTE CHANGES. WCTM AND REPORT TO DAY RN.
[2022-11-21 06:42] LABS: Hematocrit 32.3 % (37.0-53.0)
[2022-11-21 06:58] LABS: Albumin, Blood 1.9 g/dL (3.4-5.0); Anion Gap 5 mmol/L (6-16); Blood Urea Nitrogen 80 mg/dL (8-24); Bun/Creatinine Ratio 26.1 (12.0-20.0); CO2, Blood 26 mmol/L (21-32); Calcium, Blood 7.8 mg/dL (8.5-10.1); Chloride, Blood 103 mmol/L (98-108); Creatinine, Blood 3.06 mg/dL (0.60-1.20); Glomerular Filtration Rate 21 (60-); Glucose, Blood 128 mg/dL (70-99); Magnesium, Blood 2.2 mg/dL (1.6-2.4); Phosphorus, Blood 4.1 mg/dL (2.5-4.9); Potassium, Blood 4.2 mmol/L (3.5-5.5); Sodium, Blood 134 mmol/L (136-145)
[2022-11-21 07:52] VITALS: BP 124/72
[2022-11-21 14:13] LABS: BASOPHILS ABSOLUTE AUTO 0.02 K/mm3 (0.00-0.23); BASOPHILS PERCENT AUTO 0 % (0-2); EOSINOPHILS ABSOLUTE AUTO 0.26 K/mm3 (0.00-0.68); EOSINOPHILS PERCENT AUTO 3 % (0-6); Hematocrit 32.5 % (37.0-53.0); Hemoglobin 11.1 g/dL (13.5-17.5); IMMATURE GRAN ABSOLUTE AUTO 0.16 K/mm3 (0.00-0.10); IMMATURE GRAN PERCENT AUTO 2 % (0-1); LYMPHOCYTES ABSOLUTE AUTO 0.51 K/mm3 (0.84-5.20); LYMPHOCYTES PERCENT AUTO 6 % (21-46); MONOCYTES ABSOLUTE AUTO 1.01 K/mm3 (0.16-1.47); MONOCYTES PERCENT AUTO 11 % (4-13); Mean Corpuscular HGB 30.2 pg (26.0-34.0); Mean Corpuscular HGB Conc 34.2 g/dL (31.5-36.5); Mean Corpuscular Volume 88 fL (80-100); Mean Platelet Volume 12.5 fL (9.1-12.4); NEUTROPHILS ABSOLUTE AUTO 7.26 K/mm3 (1.96-9.15); NEUTROPHILS PERCENT AUTO 79 % (41-73); Platelet Count 156 K/mm3 (150-400); RDW Coefficient Variation 14.2 % (11.7-14.2); RDW Standard Deviation 45.7 fL (35.1-46.3); Red Blood Cell Count 3.68 M/mm3 (4.30-5.90); White Blood Cell Count 9.22 K/mm3 (4.00-11.30)
[2022-11-21 15:21] VITALS: BP 125/70
--- NOTE | 2022-11-21 15:21 | NUR ---
SHIFT SUMMARY PT AWAKE, RESTING QUIETLY AT START OF SHIFT. GETTING UP TO EOB, SETTING BED ALARM OFF, WANTING ICE WATER. PT IS FORGETFUL AND IMPULSIVE, BUT DOES RESPOND TO DIRECTIONS. UP TO BTHRM SEVERAL TIMES TODAY, VOIDING WELL AND HAVING 2 EX LRG BMS. EATING AND DRINKING WELL. NO C/O PAIN. DENIES FURTHER NEEDS AT THIS TIME. CALL LT IN REACH. BED ALARM ON FOR SAFETY.
[2022-11-21 19:12] VITALS: BP 150/70
[2022-11-22 02:32] VITALS: BP 119/68
[2022-11-22 05:31] LABS: Hematocrit 33.2 % (37.0-53.0); Hemoglobin 11.4 g/dL (13.5-17.5)
[2022-11-22 06:02] LABS: Albumin, Blood 2.1 g/dL (3.4-5.0); Anion Gap 6 mmol/L (6-16); Blood Urea Nitrogen 70 mg/dL (8-24); Bun/Creatinine Ratio 23.3 (12.0-20.0); CO2, Blood 25 mmol/L (21-32); Calcium, Blood 8.1 mg/dL (8.5-10.1); Chloride, Blood 100 mmol/L (98-108); Creatinine, Blood 3.01 mg/dL (0.60-1.20); Glomerular Filtration Rate 22 (60-); Glucose, Blood 124 mg/dL (70-99); Magnesium, Blood 2.1 mg/dL (1.6-2.4); Phosphorus, Blood 4.4 mg/dL (2.5-4.9); Potassium, Blood 4.4 mmol/L (3.5-5.5); Sodium, Blood 131 mmol/L (136-145)
--- NOTE | 2022-11-22 06:22 | NUR ---
SHIFT SUMMARY PT JUMPING OOB ATLEAST 5-8 TIMES EVERY HOUR TO USE THE BATHROOM, PT STATES HIS URINARY FREQUENCY IS THE SAME WAY AT HOME. PRN SLEEPING MEDICATION GIVEN WITH NO EFFECT. VIDEO DIESEL LOCOMOTIVE ENGINEER ON AND FREQUENTLY ALARMING. DESPITE CONSISTENT REMINDERS PT DOES NOT USE THE CALL ALMARAZ. PT AMBULATING TO BATHROOM WITH A WALKER, BUT STATES HE DOES NOT USE A WALKER AT HOME. NO C/O PAIN. NO OTHER EVENTS OVERNIGHT.
[2022-11-22 07:48] VITALS: BP 124/81
[2022-11-22] MEDS ORDERED: MIDO5 PO (11:28)
[2022-11-22] MEDS ORDERED: FURO40 PO (11:28)
[2022-11-22] MEDS ORDERED: PANT40 PO (11:30)
[2022-11-22] MEDS ORDERED: KLOR-CON 1010 ME9 PO (11:31)
--- NOTE | 2022-11-22 15:08 | NUR ---
PT AWAKE AT START OF SHIFT. UP TO CHAIR FOR BREAKFAST AND LUNCH. UP TO BTHRM NEEDED TO VOID. PT IS IMPATIENT AND IMPULSIVE. BED ALARM AND CHAIR ALARM USED FOR SAFETY. SBA USING FWW FOR AMBULATION. HOPI, BUT PLEASANT. DR GUERRA IN TO SEE PT THIS AM. D/C ORDERS PLACED LATER. PT'S SISTER HERE THIS AFTERNOON. INSTRUCTED TO CALL S/O FOR P/U AND RIDE HOME. PT ASSISTED OUT VIA W/C BY PHARMACY DISTRICT MANAGER AND S/O AT SIDE. NO C/O. S/O ASSISTED PT WITH BELONGINGS.
== END 2022-11-22 14:17 | disposition home health service (06) | DRG 871 ==
LOC: ER 13:52 → ICUE 17:35 → MEDS 11-18 17:48
PROVIDERS: Emergency Medicine; Family Medicine; Internal Medicine; Internal Medicine Nephrology; Nurse Practitioner Acute Care; Student in an Organized Health Care Education/Training Program; ADMIT Internal Medicine
PROC: 5A2204Z Restoration of Cardiac Rhythm, Single (ICD-10-PCS; principal; 2022-11-15)
PROC: 3E033XZ Introduction of Vasopressor into Peripheral Vein, Percutaneous Approach (ICD-10-PCS; 2022-11-15)
PROC: 02HV33Z Insertion of Infusion Device into Superior Vena Cava, Percutaneous Approach (ICD-10-PCS; 2022-11-15)
PROC: 0T9B70Z Drainage of Bladder with Drainage Device, Via Natural or Artificial Opening (ICD-10-PCS; 2022-11-15)
PROC: 4A033R1 Measurement of Arterial Saturation, Peripheral, Percutaneous Approach (ICD-10-PCS; 2022-11-15)
PROC: 3E03329 Introduction of Other Anti-infective into Peripheral Vein, Percutaneous Approach (ICD-10-PCS; 2022-11-15)
PROC: 0DJ08ZZ Inspection of Upper Intestinal Tract, Via Natural or Artificial Opening Endoscopic (ICD-10-PCS; 2022-11-17)
DX: A41.51 Sepsis due to Escherichia coli [E. coli] (principal); J96.01 Acute respiratory failure with hypoxia; R65.21 Severe sepsis with septic shock; K22.11 Ulcer of esophagus with bleeding; N17.9 Acute kidney failure, unspecified; E87.20 Acidosis, unspecified; N13.8 Other obstructive and reflux uropathy; N13.6 Pyonephrosis; N20.2 Calculus of kidney with calculus of ureter; E87.1 Hypo-osmolality and hyponatremia; I24.9 Acute ischemic heart disease, unspecified; R74.01 Elevation of levels of liver transaminase levels; D69.6 Thrombocytopenia, unspecified; E77.8 Other disorders of glycoprotein metabolism; N40.1 Benign prostatic hyperplasia with lower urinary tract symptoms; I48.91 Unspecified atrial fibrillation; M19.90 Unspecified osteoarthritis, unspecified site; I12.9 Hypertensive chronic kidney disease with stage 1 through stage 4 chronic kidney disease, or unspecified chronic kidney disease; M54.9 Dorsalgia, unspecified; J44.9 Chronic obstructive pulmonary disease, unspecified; F41.3 Other mixed anxiety disorders; Z20.822 Contact with and (suspected) exposure to COVID-19; G62.9 Polyneuropathy, unspecified; E78.5 Hyperlipidemia, unspecified; G89.29 Other chronic pain; N18.30 Chronic kidney disease, stage 3 unspecified; N32.81 Overactive bladder; E66.9 Obesity, unspecified; G47.00 Insomnia, unspecified; D63.1 Anemia in chronic kidney disease; E88.09 Other disorders of plasma-protein metabolism, not elsewhere classified; E86.9 Volume depletion, unspecified; I25.2 Old myocardial infarction; Z98.890 Other specified postprocedural states; Z79.899 Other long term (current) drug therapy; Z68.36 Body mass index [BMI] 36.0-36.9, adult
CPT/HCPCS: 0241U; 36415; 36430; 36556; 36600; 51702; 71045; 74018; 74176; 76770; 80053; 80069; 80076; 80202; 81001; 82330; 82550; 82803; 82947; 83605; 83690; 83735; 83880; 84100; 84145; 84484; 85014; 85018; 85025; 85384; 85610; 85730; 86850; 86900; 86901; 87040; 87077; 87086; 87186; 92960; 93005; 93010; 93306; 94640; 94664; 94760; 94762; 96365-59; 96366-59; 96367-59; 96375-59; 97110-CQ; 97116; 97116-CQ; 97162; 97165; 97530; 97535; 99285-25; A9270; C1751; C9113; J0171; J0282; J0612; J0696; J1430; J1720; J1940; J2185; J2371; J2405; J2704; J2765; J3010; J3370; J3475; J7030; J7040; J7050; J7060; J7120; P9035